=== PATIENT | male | born 1955 | race Caucasian/White ===

== ENCOUNTER → 2024-11-12 08:38 | Outpatient (REF) | payer MEDICARE, OTHER, SELFPAY | LOC: RAD 08:38 | PROVIDERS: ATTENDING PHYSICIAN Family Medicine | DX: D35.1 Benign neoplasm of parathyroid gland (principal) | CPT/HCPCS: 78071; A9500 ==

== ENCOUNTER → 2024-11-19 08:04 | Outpatient (REF) | payer MEDICARE, OTHER, SELFPAY | LOC: RST 08:04 | PROVIDERS: ATTENDING PHYSICIAN Family Medicine | DX: R13.13 Dysphagia, pharyngeal phase (principal) | CPT/HCPCS: 74230; 92611 ==